=== PATIENT | male | born 1965 | race Hispanic/Latino ===

== ENCOUNTER 2017-09-03 18:20 | Emergency (ER) | payer MEDICAID ==
[2017-09-03] MEDS ORDERED: SODIUM CHLORIDE 0.9% 1000ML 1,000 ML IV ONE (19:08)
[2017-09-03 19:15] LABS: EOSINOPHILS % (AUTO) 2.8 % (0.0-8.0); HEMATOCRIT 42.2 % (42-54); LYMPHOCYTES % (AUTO) 21.2 % (21.0-51.0); MEAN CORPUSCULAR HEMOGLOBIN 28.8 pg (27.0-33.0); MEAN CORPUSCULAR HGB CONC 33.8 g/dL (32.0-36.0); MEAN CORPUSCULAR VOLUME 85.2 fL (79-99); MONOCYTES % (AUTO) 7.1 % (3.0-13.0); NEUTROPHILS % (AUTO) 67.9 % (40.0-77.0); PLATELET COUNT (AUTO) 281 K/uL (130-400); RED BLOOD CELL COUNT(AUTO) 4.95 MIL/uL (4.50-6.20); RED CELL DISTRIBUTION WIDTH 13.7 % (11.0-15.5); WHITE BLOOD COUNT (AUTO) 13.2 K/uL (4.8-10.8)
[2017-09-03 19:21] LABS: CREATININE 0.9 mg/dL (0.5-1.5); POTASSIUM 3.8 mmol/L (3.5-5.1)
[2017-09-03 19:26] LABS: ALBUMIN 3.9 g/dL (3.5-5.0); BILIRUBIN,TOTAL 0.2 mg/dL (0.2-1.0)
[2017-09-03 19:29] LABS: APPEARANCE,URINE Clear (CLEAR); BILIRUBIN,URINE Negative (NEGATIVE); COLOR,URINE Yellow (YELLOW); GLUCOSE, URINE (UA) Negative (NEGATIVE); KETONES,URINE Negative (NEGATIVE); LEUKOCYTE ESTERASE ,URINE Negative (NEGATIVE); NITRATE,URINE Negative (NEGATIVE); OCCULT BLOOD,URINE Negative (NEGATIVE); PROTEIN,URINE Negative (NEGATIVE); UROBILINOGEN,URINE 0.2 mg/dL (0.2-1.0)
[2017-09-03] MEDS ORDERED: KETOROLAC TROMETHAMINE 30MG/ML ONE (19:42)
== END 2017-09-03 20:37 | disposition home or self-care (01) ==
LOC: EDH 18:20
DX: R51 Headache (principal); R11.0 Nausea; I10 Essential (primary) hypertension; E78.5 Hyperlipidemia, unspecified; Z72.0 Tobacco use
CPT/HCPCS: 36415; 70450; 80053; 81003; 85025; 96361; 96374; 99285; J1885; J7030

== ENCOUNTER → 2019-10-07 | Outpatient (CLI) | payer MEDICARE | END | disposition home or self-care (01) | LOC: RAH 07:53 | PROVIDERS: ATTEND Family Medicine | DX: M51.36 Other intervertebral disc degeneration, lumbar region (principal); M47.896 Other spondylosis, lumbar region; M54.32 Sciatica, left side | CPT/HCPCS: 72148 ==

== ENCOUNTER 2022-08-15 05:54 | Day surgery (SDC) | payer MEDICARE ==
[2022-08-08 08:43] LABS: HEMATOCRIT 49.1 % (42-54); MEAN CORPUSCULAR HEMOGLOBIN 28.5 pg (27.0-33.0); MEAN CORPUSCULAR VOLUME 86.3 fL (79-99); PLATELET COUNT (AUTO) 292 K/uL (130-400); RED BLOOD CELL COUNT(AUTO) 5.69 MIL/uL (4.50-6.20); RED CELL DISTRIBUTION WIDTH 12.8 % (11.0-15.5); WHITE BLOOD COUNT (AUTO) 10.4 K/uL (4.8-10.8)
[2022-08-08 08:44] VITALS: BP 164/78
[2022-08-08 09:01] LABS: BASOPHILS % (AUTO) 1.2 % (0.0-5.0); EOSINOPHILS % (AUTO) 3.5 % (0.0-8.0); LYMPHOCYTES % (AUTO) 34.5 % (21.0-51.0); MONOCYTES % (AUTO) 9.9 % (3.0-13.0); NEUTROPHILS % (AUTO) 50.6 % (40.0-77.0)
[2022-08-08 09:17] LABS: ALBUMIN 4.1 g/dL (3.5-5.0); BILIRUBIN,DIRECT 0.1 mg/dL (0.0-0.3); CREATININE 0.9 mg/dL (0.5-1.5); POTASSIUM 3.8 mmol/L (3.5-5.1)
[~2022-08-15] VITALS: Ht 162.6 cm; Wt 78.4 kg
[2022-08-15] VITALS (18 sets, daily range): BP systolic 113–135; BP diastolic 57–73
[~2022-08-15 05:54] MED LIST: ALBU18HF7 IH; ALPR2TAB7 PO; AMLO-257 PO; ATOR10TA69 PO; BUDE10.2 IH; HYDR-4068 PO; HYDR12.54 PO; LACTATED RINGERS 1000ML 1,000 ML IV SCH; TAMS-1 PO
[2022-08-15] MEDS: CEFAZOLIN SODIUM 1 GM VIAL IVPB SCH ×2 (06:43→08:21)
[2022-08-15] MEDS ORDERED: FAMOTIDINE 20MG VIAL IV ONE (07:26)
[2022-08-15] MEDS ORDERED: SUCCINYLCHOLINE CHLORIDE 20 MG/ML 10 ML VIAL ONE (07:28)
[2022-08-15] MEDS ORDERED: PROPOFOL 10 MG/ML 20ML VIAL IV ONE (07:28)
[2022-08-15] MEDS ORDERED: FENTANYL CITRATE PF 50 MCG/1 ML 2ML VIAL ONE ×3 (07:29→09:55)
[2022-08-15] MEDS ORDERED: ROCURONIUM 10MG/1ML SYR 10 MG/ML ML ONE (07:29)
[2022-08-15] MEDS ORDERED: MIDAZOLAM HCL 1 MG/ML 2ML VIAL ONE (07:29)
[2022-08-15] MEDS ORDERED: ONDANSETRON 4MG INJ ONE (08:34)
[2022-08-15] MEDS ORDERED: MEPERIDINE-PF 25 MG/ML SYG ONE (08:44)
[2022-08-15] MEDS ORDERED: BUPIVACAINE/PF 0.5% 30ML VIAL INJ ONE (08:45)
[2022-08-15] MEDS ORDERED: NEOSTIGMINE 5MG/5ML SYR IV ONE (08:59)
== END 2022-08-15 11:05 | disposition home or self-care (01) ==
LOC: DAH 05:54
PROVIDERS: ATTEND Surgery
DX: K43.6 Other and unspecified ventral hernia with obstruction, without gangrene (principal); Z20.822 Contact with and (suspected) exposure to COVID-19; I10 Essential (primary) hypertension; J45.909 Unspecified asthma, uncomplicated; K21.9 Gastro-esophageal reflux disease without esophagitis; F41.9 Anxiety disorder, unspecified; E78.00 Pure hypercholesterolemia, unspecified; F32.A Depression, unspecified; F17.200 Nicotine dependence, unspecified, uncomplicated; Z82.49 Family history of ischemic heart disease and other diseases of the circulatory system; Z98.890 Other specified postprocedural states; Z79.899 Other long term (current) drug therapy
CPT/HCPCS: 87426; 80076; 80048; 85025; 36415; 49594; 94640; 93005; A6260; A4663; J7120 ×2; J3490 ×2; J3010 ×3; J0690; J2710; J0330; J2250; J2704; J2405; J2175; C1769 ×2; A4649; A4930 ×2; A5120; A4215; A4223; A4222; A4221; J7030; A4600

== ENCOUNTER → 2024-04-12 | Outpatient (CLI) | payer MEDICARE ==
[~2024-04-12] MED LIST changes: -LACTATED RINGERS 1000ML 1,000 ML IV SCH
[2024-04-12 16:34] LABS: ALBUMIN 3.9 g/dL (3.5-5.0); BILIRUBIN,TOTAL 0.4 mg/dL (0.2-1.0); CREATININE 0.8 mg/dL (0.5-1.3); POTASSIUM 3.7 mmol/L (3.5-5.1); TOTAL PROTEIN, SERUM 6.9 g/dL (6.0-8.3)
== END | disposition home or self-care (01) ==
LOC: LAB 11:56
PROVIDERS: ATTEND Internal Medicine Cardiovascular Disease
DX: I25.10 Atherosclerotic heart disease of native coronary artery without angina pectoris (principal); R07.9 Chest pain, unspecified
CPT/HCPCS: 36415; 80053

== ENCOUNTER → 2024-04-12 | Outpatient (CLI) | payer MEDICARE ==
--- NOTE | 2024-04-12 13:12 | HMCSR ---
APPROVED REPORT EXAM: Two-dimensional and M-mode echocardiogram with Doppler and color Doppler. INDICATION Chest Pain RISK FACTORS Hypertension Hyperlipidemia Diabetes 2D Dimensions RVDd3.4 cmLVEF(%)54.6 (>50%)LVED Vol(simp.)115.0 mL IVSd0.8 (0.7-1.1cm)FS(%)28 %LVES Vol(simp.)51.0 mL LVDd5.1 (3.8-5.6cm)LA (2D)4.2 (1.6-4.0cm)LVEF(%, simp.)55 % PWd1.0 (0.7-1.1cm)Ao Root(2D)2.6 (2.0-3.7cm)LA ESV INDEX (BP)39.65 mL/m2 LVDs3.6 (2.5-4.0cm)LVOT diam2.1 (1.8-2.4cm) IVC diam1.5 cm M-Mode Dimensions EPSS1.3 cm Aortic Valve AoV Vmax1.3 m/Polly Peak GR6.7 mmHgLVOT Vmax1.0 m/s AoV VTI0.3 mAo Mean GR3.6 mmHgLVOT VTI0.22 m ROXANA (VMAX)2.5 cm2Al P1/2T600 msAVA (VTI) 2.5 cm2 Mitral Valve MV E Culu663.9 cm/sDECEL Vahy698 msMV Peak GR6 mmHg MV A Qvbf440.4 cm/sMV Mean GR3 mmHg E/A ratio1.1MVA (VTI)2.4 cm2 MR Max PG56 mmHg TDI E/E' Kyibsy28.8E/E' Mlyxiip41.8 Pulmonary Valve PV Vmax0.9 m/sPV VTI0.24 mPV Mean GR2 mmHg PV Peak GR3.6 mmHg Tricuspid Valve TR Vmax1.7 m/sRAP (EST) 3 eoQhEZMC89.1 mmHg TR Peak GR12.1 mmHg Left Ventricle Left ventricular cavity size is normal. There is normal LV segmental wall motion. There is normal lef t ventricular wall thickness. LVEF is 50-55%. Stage II, diastolic dysfunction. Right Ventricle The right ventricle is normal size. The right ventricular systolic function is normal. Atria The left atrium is mildly dilated. The right atrium size is normal. Aortic Valve Aortic valve is trileaflet. Aortic valve leaflets are sclerotic but open well. Mild aortic regurgitat ion. There is no aortic valvular stenosis. Mitral Valve Mitral annular calcification is mild. Mitral valve leaflets are moderately calcified. Mitral regurgit ation is mild. Cannot exclude mitral valve vegetation vs calcification on mitral valve leaflets. Ther e is no mitral valve stenosis. Tricuspid Valve The tricuspid valve leaflets appear normal. There is trace tricuspid regurgitation. Pulmonic Valve The pulmonic valve leaflets are thin and pliable; valve motion is normal. There is no pulmonic valvul ar regurgitation. Great Vessels Aortic root is within normal limits. The IVC is normal in size and collapses >50% with inspiration . Pericardium No pericardial effusion. Conclusion LVEF is 50-55%. Stage II, diastolic dysfunction.
== END | disposition home or self-care (01) ==
LOC: SHCH 10:01
PROVIDERS: ATTEND Internal Medicine Cardiovascular Disease
DX: I08.0 Rheumatic disorders of both mitral and aortic valves (principal); R07.9 Chest pain, unspecified; I11.9 Hypertensive heart disease without heart failure
CPT/HCPCS: 93306

== ENCOUNTER → 2024-06-06 | Outpatient (CLI) | payer MEDICARE ==
[2024-06-06 12:22] LABS: CREATININE 0.7 mg/dL (0.5-1.3); POTASSIUM 3.4 mmol/L (3.5-5.1)
== END | disposition home or self-care (01) ==
LOC: LAB 10:46
PROVIDERS: ATTEND Internal Medicine Cardiovascular Disease
DX: I25.10 Atherosclerotic heart disease of native coronary artery without angina pectoris (principal)
CPT/HCPCS: 36415; 80048

== ENCOUNTER → 2024-06-08 | Outpatient (CLI) | payer MEDICARE ==
[~2024-06-08] MED LIST changes: +IOHEXOL 350 MG/ML 100ML INFUS..BTL IV ONE
--- NOTE | 2024-06-08 15:36 | HMCIMG ---
CT CARDIAC ANGIO W/CONT. CCTA HISTORY: Atherosclerotic heart disease COMPARISON: None TECHNIQUE: Multiple sequential axial images of the chest were obtained along with the CT angiogram of the chest study. Patient was given 100 cc of Omnipaque through intravenous route. FINDINGS: There is no evidence of pulmonary nodule or parenchymal disease. No pleural effusion or pericardial effusion is seen. There is no evidence of pneumothorax. There are normal size mediastinal and hilar lymph nodes. The heart is not enlarged. Degenerative changes of the thoracolumbar spine are present. IMPRESSION: 1. No evidence of pulmonary nodule or effusion is seen. Please see CT angiogram report of coronary arteries.
--- NOTE | 2024-06-12 15:26 | CARDIOLOGY ---
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 A dedicated, limited window, coronary imaging protocol was used, with single breath-hold, retrospective ECG gating, and automated arrhythmia rejection. 100 cc of low osmolar contrast agent: Omnipaque 350 was delivered via a 18-gauge IV catheter in the right antecubital fossa, using a power injector and followed by 60 cc of normal saline bolus as a chaser. Collimated images were reformatted at 0.5 mm intervals, and sent to an offline independent workstation for interpretation, using 3D anatomic reconstructions: Curved multiplanar reconstructions, maximum intensity projections, and multiplanar imaging. No metoprolol was administered prior to scanning due to low baseline heart rate. 0.4 mg SL nitroglycerin was given. CORONARY ARTERY DESCRIPTIONS: The coronary arteries arise in normal position. Left main coronary artery: Normal caliber vessel that bifurcates into the LAD and LCx. There is mixed calcified and noncalcified plaque in the distal left main with 20% stenosis. Left anterior descending coronary artery: Normal caliber vessel and gives rise to diagonal and septal branches. No stenosis. Left circumflex coronary artery: Normal caliber, nondominant and gives rise to a large OM branch. No stenosis. Right coronary artery: Large, dominant vessel giving rise to the PL and PDA branches. No stenosis. CAD-RADs: 2, mild non obstructive CAD. Thoracic Aorta: Normal diameter. Marbella Rai MD Cardiovascular Disease [facility] MARBELLA RAI MD Jun 12, 2024 15:26
== END | disposition home or self-care (01) ==
LOC: RAH 10:15
PROVIDERS: ATTEND Internal Medicine Cardiovascular Disease
DX: I25.10 Atherosclerotic heart disease of native coronary artery without angina pectoris (principal); M47.815 Spondylosis without myelopathy or radiculopathy, thoracolumbar region
CPT/HCPCS: 75574; Q9967